=== PATIENT | female | born 1960 | race Caucasian/White ===

== ENCOUNTER 2025-06-27 17:23 | Emergency (ER) | payer BC, SELFPAY ==
[2025-06-27 17:27] VITALS: BP 123/84
--- NOTE | 2025-06-27 21:58 | ED.GENMED ---
History of Present Illness
General
Chief Complaint: Foreign Body Removal
Source: patient
Exam Limitations: none
Time Seen by Provider: 06/27/25 20:26
Nursing documentation reviewed up to this point in time: agreed with
History of Present Illness
History of Present Illness:
65-year-old female with history as noted presents for evaluation of foreign body in the left foot. Patient says that last night she stood up and stepped on something sharp and was having significant pain with weightbearing today which prompted trip
to urgent care�there on x-ray found foreign body in the foot but they were not able to remove it and so she was sent to the ER. She denies any other acute complaints.
Review of Systems
Review of Systems
All Other Systems: ROS reviewed and negative except as documented in HPI and ROS
Skin: Reports other (Foot pain and foreign body in the foot)
Phy Exam
Physical Exam
Physical Exam:
General: Well appearing and non-toxic
HEENT: protecting airway
Neck: appears supple
CV: No evidence of cyanosis
Resp: No accessory muscle use
Abd: Non-distended
Extremities: No deformities
Neuro: Alert
Psych: Normal affect
Skin: Patient has punctate hole on the sole of the foot at the base of the first toe no visible foreign body noted, no significant erythema or warmth in the area and no drainage appreciated
Scores
Heart Failure Risk
Heart Failure Risk Score: Not Applicable
Heart Score for Chest Pain Patients
STEMI patient?: Not applicable
Withdrawal Assessment of Alcohol
Withdrawal Assessment Completed?: Not applicable
Course
Orders/Labs/Results
Orders:
Orders
06/27/25 17:34
Foot, Left 3 View [CR Foot - Left Min 3 Views] Urgent
Comment:
Reason For Exam: foreign body
06/27/25 21:58
CeFAZolin SODIUM [Ancef] 1,000 mg IM NOW STA
Tetanus/Diphth/Acelpertussis [Adacel] 0.5 ml IM .ONCE ONE
06/27/25 22:18
Sterile Water [Sterile Water For Injection] 10 ml .ROUTE .STK-MED ONE
06/27/25 22:20
PODIATRY CONSULT Urgent
Consulting Provider: Teofilo Mendoza
Was physician already notified: Yes
06/27/25 22:24
CeFAZolin SODIUM [Ancef] 1,000 mg .ROUTE .STK-MED ONE
Sterile Water [Sterile Water For Injection] 20 ml .ROUTE .STK-MED
06/28/25 Breakfast
NPO
Allow oral meds: No
Allow clear liquids: No
Vital Signs
Initial and Last Documented VS:
Initial Vital Signs
Temp Pulse Resp BP Pulse Ox
36.5 C 73 18 123/84 99
06/27/25 17:27 06/27/25 17:27 06/27/25 17:27 06/27/25 17:27 06/27/25 17:27
Last Documented Vital Signs
Temp Pulse Resp BP Pulse Ox
36.5 C 73 18 123/84 99
06/27/25 17:27 06/27/25 17:27 06/27/25 17:27 06/27/25 17:27 06/27/25 21:58
Procedures
Foreign Body Removal-Skin
Wound explored and foreign body removed?: No
Anesthesia: 1%lidocaine w/epinephrine
Foreign body removed using: unable to locate FB
Foreign body removed: none removed (Cruciate incision made over the area of entry and wound probed and explored extensively but not able to locate foreign body)
MDM/Problems Addressed
Differential Diagnosis Includes:
Retained foreign body
MDM/Problems Addressed:
65-year-old female presents with a foreign body in her left foot�x-ray showed retained pins/needle. Area was explored extensively at bedside but not able to remove foreign body. Case discussed with podiatry and interventional radiology for further
recommendations regarding removal. Will treat with empiric antibiotic and update patient's tetanus shot.
Discussed with podiatry�they will come to bedside for assessment.
Podiatry explored at bedside but unable to remove foreign body�plan to take patient to the OR.
Unfortunately no OR team available for case tonight�podiatry coordinated with nursing [employer] supervisor and plan to add patient on for tomorrow. Patient given option and planning to go home tonight and team will reach out to her tomorrow to come back for
outpatient procedure.
*Radiology
Radiology exam reviewed: preliminary read by ED provider and radiology read reviewed
*Pulse Oximetry
SaO2: 99
Oxygen Mode of Delivery: Room air
Patient hypoxic: no (99%)
*Critical Care Note
Total Time (30-74mins, 75-104mins- exclusive of procedures): Not Applicable
Data Reviewed
Source: patient
Patient Management
Discussion with other providers: [employer] (Discussed with podiatry, discussed with interventional radiology)
ED Attending Note
-
Portions of this chart may have been created with voice recognition software.� Occasional wrong word or��sound alike� substitutions may have occurred due to the inherent limitations of voice recognition software.
Discharge Plan
Departure
Patient Disposition: Home (Routine Discharge)
Date of Disposition: 06/27/25
Time of Disposition: 22:54
Admit to doctor: Reji
Patient with high blood pressure during this ER visit?: No
Discharge Problem:
Foreign body in foot, left
Instructions: Foreign Body in Skin (DC)
Prescriptions:
New
cephalexin 500 mg capsule
500 mg PO QID 7 Days Qty: 28 0RF
Referrals:
UNKNOWN - PT DOES,NOT KNOW [Family Provider]
Activity Restrictions/Additional Instructions:
You should receive a call tomorrow to return for removal of your foreign body in the operating room on an outpatient basis.
Interventions
Interventions:
*Risk Screen - Suicide Last Done: 06/27/25 17:27
*General Assessment Last Done: 06/27/25 17:27
*Neglect/Abuse Screening Last Done: 06/27/25 21:43
*ED- Fall Risk Assessment Last Done: 06/27/25 21:43
Discharge Date and Time
Print Language: WOLOF
[2025-06-27] MEDS: ANCEF 1000 MG IM (22:49)
[2025-06-27] MEDS: ADACEL 0.5 ML IM (22:50)
--- NOTE | 2025-06-27 23:13 | W.CS.POD ---
Consult Summary - Podiatry
-
65 yo female presented to the ER after stepping on a foreign body ( sewing needle ) at her home last night, She states that she went to urgent care , failed to remove so she presented to the [facility], ER physcician also explored LT foot. Xrays
shows linear needle shaped object under forefoot around 1st met base, She is currently stable, has pain, unable to put wt bear on her Left foot , Left foot no redness, no pus.
Reviewed PMh, meds and allergies.
Exam : Intact Pedal pulses LT foot
LT foot FB entry point with no visible FB, no pus, no erythema, no active bleeding
Xrays reviewed shows presence of long linear needle shaped FB
A/p; Left foot retained foreign body.
Plan ; Under all aseptic conditions, i have explored the LT foot under 5 cc local Lidocaine with out success so scheduled her for open exploration in ER 06/28/2025
Discussed wit patient and her who are agreeable with plan to OR exploration.
Discussed all risks of infection, pain, retention of FB permanently. Scar tissue. etc
PT NPO after midnight
Scheduled her for OR 06/28/25
She will be D/C ed home with Oral Abx and was given one dose of Ceftin and tetanus
Podiatry will follow, i have given my info for any concerns to call
== END 2025-06-27 23:23 | disposition home or self-care (01) ==
LOC: EMR 17:23
PROVIDERS: CONSULT PHYSICIAN Podiatrist Foot & Ankle Surgery; EMERGENCY PHYSICIAN Emergency Medicine
DX: S91.342A Puncture wound with foreign body, left foot, initial encounter (principal); W26.9XXA Contact with unspecified sharp object(s), initial encounter; Z23 Encounter for immunization
CPT/HCPCS: 10120; 90471; 96372; 99284; 73630; 90715

== ENCOUNTER 2025-06-28 12:21 | Day surgery (SDC) | payer BC, SELFPAY ==
[2025-06-28 13:25] VITALS: BMI 21.6
[2025-06-28 13:31] VITALS: BMI 21.6
[2025-06-28 13:32] VITALS: BP 131/66
[2025-06-28] MEDS: NORMOSOL-R/PLASMALYTE-A 1000 IV (13:45)
[2025-06-28 14:16] LABS: ALT (SGPT) 29 U/L (0-35); AST (SGOT) 29 U/L (14-36); Albumin 4.5 g/dl (3.5-5.0); Alkaline Phosphatase 125 U/L (38-126); Blood Urea Nitrogen 18 mg/dl (7-17); Calcium 9.2 mg/dl (8.4-10.2); Carbon Dioxide 23 mmol/L (22-30); Chloride 109 mmol/L (98-107); Estimated Creatinine Clearance 83 ml/min; Glucose 92 mg/dl (70-99); Potassium 4.1 mmol/L (3.5-5.1); Sodium 138 mmol/L (135-145); Total Protein 7.1 g/dl (6.3-8.2); eGFR > 60.00
[2025-06-28 16:17] VITALS: BP 101/56
[2025-06-28 16:30] VITALS: BP 91/50
[2025-06-28 16:45] VITALS: BP 106/71
[2025-06-28 16:58] VITALS: BP 113/72
== END 2025-06-28 17:18 | disposition home or self-care (01) ==
LOC: SDS 12:21
PROVIDERS: ATTENDING PHYSICIAN Podiatrist Foot & Ankle Surgery
DX: S90.852A Superficial foreign body, left foot, initial encounter (principal); X58.XXXA Exposure to other specified factors, initial encounter
CPT/HCPCS: 28193; 80053; 93005